=== PATIENT | female | born 1955 | race Caucasian/White ===

== ENCOUNTER 2023-02-27 11:46 | Inpatient (IN) | payer MEDICARE, OTHER ==
[~2023-02-27] VITALS: Ht 167.6 cm; Wt 37.6 kg
--- NOTE | 2023-02-27 11:51 | NUR ---
Pt seen by MD for bedside eval. Safety measures in place. Will continue to monitor.
--- NOTE | 2023-02-27 12:20 | NUR ---
REPORT WAS GIVEN TO RN [facility]. PT WAS TRANSFERED TO [facility] ROOM #[id number].
[2023-02-27] MEDS ORDERED: LORAZEPAM 0.5 MG TABLET PO PRN (13:00)
[2023-02-27] MEDS ORDERED: MAG HYDROX/AL HYDROX/SIMETH 30 ML LIQUID UDC PO PRN (13:00)
[2023-02-27] MEDS ORDERED: MAGNESIUM HYDROXIDE 30 ML LIQUID UDC PO PRN (13:00)
[2023-02-27] MEDS ORDERED: BLOOD SUGAR DIAGNOSTIC 1 EACH STRIP VI ONE (13:00)
[2023-02-27] MEDS ORDERED: ZOLPIDEM 5 MG TABLET PO PRN (13:00)
[2023-02-27] MEDS ORDERED: ACETAMINOPHEN 325 MG TABLET PO PRN (13:00)
--- NOTE | 2023-02-27 13:00 | NUR ---
Nursing -Received report for ER Nurse Billy. Admitted from ER via wheel chair. Alert, oriented x3. Upon face to face with patient noted anxious, hesitancy answering questions being asked during her admission, flat, guarded. denies any plan to hurt self. Refused to provide personal lines insurance agent, claimed there was a friend Naga, but does not know his number.Claimed she's worried about insurancAde, because she does not have address, her house in [place] got sold but will not elaborate . Admit to being somewhat feeling depress but no plan to hurt herself.Geropsychiatric in patient program patient guidelines booklet provided. Oriented to unit settings. Routine admission care done .
[2023-02-27] MEDS ORDERED: LORAZEPAM 1 MG TABLET PO PRN (13:15)
--- NOTE | 2023-02-27 16:01 | NUR ---
[facility] Initial Discharge Note: Per face sheet, pt's residence states [address] [place] [address]. Pt appears homeless at this time and reports she does not have a current residence. Pt stated she does not have any family contact. [facility] will continue to work with pt and MD to ensure a safe and proper discharge plan.
--- NOTE | 2023-02-27 16:04 | NUR ---
Firearms Report: Electrical And Electronic Assembler completed and submitted a [employer] firearms report for 5[address] grave disability certifications. A copy of report has been placed in patient chart.
[2023-02-27 16:06] VITALS: BP 95/42
--- NOTE | 2023-02-27 17:34 | NUR ---
Nursing - Ambulated to the bathroom with fairly steady gait . Noted patient extremely particular with her handwashing . Contienent of her bowel and her bladder, adequate fluid intake, denies any discomfort. Offered shower , patient kept refusing claimed she had a shower this am prior to coming here, reviewed good hygiene, safety emphasized, was oriented to unit settings and routines, verbalized understanding.
[2023-02-27 20:00] VITALS: BP 100/49
--- NOTE | 2023-02-28 05:04 | NUR ---
GPS: Remain calm and cooperative. isolative and quiet.encouraged to ventilate feelings. continent of b+b. assisted with adl's. resting in bed comfortably. continue monitoring for safety.
--- NOTE | 2023-02-28 06:33 | NUR ---
slept 8.15 hrs through the night.
[2023-02-28 07:25] LABS: MEAN CORPUSCULAR HEMOGLOBIN 28.9 uug (24.7-32.8); MEAN CORPUSCULAR VOLUME 84.7 fL (75.5-95.3); PLATELET COUNT (AUTO) 165 K/uL (179-408)
[2023-02-28 07:35] LABS: CREATININE 0.6 mg/dL (0.6-1.3); POTASSIUM 3.8 mmol/L (3.5-5.1)
[2023-02-28 07:47] VITALS: BP 118/48
[2023-02-28] MEDS: QUETIAPINE FUMARATE 25 MG TABLET PO SCH ×2 (13:16→16:59)
--- NOTE | 2023-02-28 15:38 | NUR ---
patient is alert and oriented x2, flat affect no interaction with other peers, isolative withdrawn .with episode of paranoia about her food. encourage for po intake,encouraged to attend in group activity .will continue for close monitoring.
[2023-02-28 16:29] LABS: BILIRUBIN,DIRECT 0.1 mg/dL (0.0-0.2); BILIRUBIN,TOTAL 0.3 mg/dL (0.2-1.0); TOTAL PROTEIN, SERUM 5.3 g/dL (6.4-8.2)
[2023-02-28 16:35] VITALS: BP 125/75
[2023-02-28 19:57] VITALS: BP 100/46
--- NOTE | 2023-03-01 06:59 | NUR ---
Pt has been isolative, stayed in her room, did not want to shower. Pt was able to sleep without sleeping pill. Pt remains isolative and withdrawn.
[2023-03-01 08:13] VITALS: BP 103/51
[2023-03-01] MEDS: QUETIAPINE FUMARATE 25 MG TABLET PO SCH ×3 (08:42→16:33)
[2023-03-01] MEDS: LORAZEPAM 1 MG TABLET PO PRN (11:06)
[2023-03-01] MEDS: ENSURE ENLIVE (VAN) 240 ML LIQUID PO SCH (16:33)
[2023-03-01 16:37] VITALS: BP 96/48
--- NOTE | 2023-03-01 16:54 | NUR ---
Received patient is alert and oriented x2, flat affect no interaction with other peers, isolative withdrawn .with episode of paranoia about her food. encourage for po intake,refused to attend in group activity .pt is up to Hodan-chair for close monitoring.
[2023-03-01 19:54] VITALS: BP 119/61
--- NOTE | 2023-03-02 04:45 | NUR ---
Pt is A/O x2, Isolative , withdrawn, flat affect no interaction with staff. Pt does not comes out of her room. Encourage pt to have some snacks and fluids but pt refused. Pt does not have a bailable plan of care. Reassurance and emotional support provided. Safety measures in place. Continue to monitor for safety, continue with treatment plan.
[2023-03-02 08:13] VITALS: BP 102/59
[2023-03-02] MEDS: QUETIAPINE FUMARATE 25 MG TABLET PO SCH ×3 (08:18→17:07)
[2023-03-02] MEDS: ENSURE ENLIVE (VAN) 240 ML LIQUID PO SCH ×3 (08:19→17:07)
[2023-03-02 16:05] VITALS: BP 109/51
[2023-03-02 19:47] VITALS: BP 117/56
[2023-03-02] MEDS: MIRTAZAPINE 15 MG TABLET PO SCH (21:34)
--- NOTE | 2023-03-02 21:52 | NUR ---
[facility] in [facility] asking for help stating "I can't breathe." Patient was AOx1, confused, disoriented, and experiencing mild anxiety. Pt was unable to reply to my questions being asked. Instead, pt continued to make nonsensical remarks. VS were WNL with O2 Sat 99% per pulse oximeter reading. Pt continued refuse direction given by me, but eventually self-ambulated back to her room and took a nap. Upon each interaction with her, she displays paranoid behavior and makes flight of ideas statements. Safety measures in place. Will continue to monitor.
[2023-03-03 08:00] VITALS: BP 109/59
[2023-03-03] MEDS: ENSURE ENLIVE (VAN) 240 ML LIQUID PO SCH ×3 (08:52→16:36)
[2023-03-03] MEDS: QUETIAPINE FUMARATE 25 MG TABLET PO SCH ×3 (08:52→16:36)
--- NOTE | 2023-03-03 15:29 | NUR ---
Received patient sleeping in her room. Patient is depressed, isolative, suspicious with food, cooperative with nursing care, compliant with medications, forgetful at times, low energy, preoccupied. Patient is A/O X 3 to person, place. Emotional support provided. Fall and safety precautions implemented.
[2023-03-03 15:55] VITALS: BP 105/51
[2023-03-03 19:52] VITALS: BP 106/55
[2023-03-03] MEDS: MIRTAZAPINE 15 MG TABLET PO SCH (20:51)
[2023-03-04 07:04] LABS: HEMATOCRIT 37.6 % (31.2-41.9); MEAN CORPUSCULAR HEMOGLOBIN 28.7 uug (24.7-32.8); MEAN CORPUSCULAR VOLUME 86.2 fL (75.5-95.3); PLATELET COUNT (AUTO) 220 K/uL (179-408)
[2023-03-04 07:14] LABS: CREATININE 0.5 mg/dL (0.6-1.3); MAGNESIUM 1.9 mg/dL (1.8-2.4); PHOSPHOROUS 3.8 mg/dL (2.5-4.9); POTASSIUM 4.2 mmol/L (3.5-5.1)
[2023-03-04 07:40] VITALS: BP 123/51
[2023-03-04] MEDS: QUETIAPINE FUMARATE 25 MG TABLET PO SCH ×3 (09:11→16:18)
[2023-03-04] MEDS: ENSURE ENLIVE (VAN) 240 ML LIQUID PO SCH ×3 (09:12→16:19)
--- NOTE | 2023-03-04 14:57 | NUR ---
Patient is isolative, withdrawn, depressed, disorganized, preoccupied, fixated on cleaning. Patient states "My feet touched the floor, and now I feel dirty. How can I eat after that?" "I need to wash my hands again because I touched the bathroom sink". Patient is A/O X 2 - 3 to person, place. Patient is encourage to verbalize concerns. Fall and safety precautions implemented.
[2023-03-04 15:08] VITALS: BP 117/73
[2023-03-04 19:57] VITALS: BP 104/52
[2023-03-04] MEDS: MIRTAZAPINE 15 MG TABLET PO SCH (21:12)
[2023-03-05] MEDS: QUETIAPINE FUMARATE 25 MG TABLET PO SCH ×3 (08:56→17:42)
[2023-03-05] MEDS: ENSURE ENLIVE (VAN) 240 ML LIQUID PO SCH ×3 (08:57→17:42)
[2023-03-05 09:09] VITALS: BP 124/55
--- NOTE | 2023-03-05 14:13 | NUR ---
Patient had court hearing today, and road test examiner Ayala Medrano gave 14 Day probable for GD only.
[2023-03-05 15:31] VITALS: BP 167/51
--- NOTE | 2023-03-05 19:52 | NUR ---
Patient is isolative, confinding in her room, depressed, thinks everything is dirty, compliant with medications. A/O X 2 to person, place. Patient is encourage to verbalize feelings. Fall and safety precautions implemented.
[2023-03-05 20:37] VITALS: BP 109/47
[2023-03-05] MEDS: MIRTAZAPINE 15 MG TABLET PO SCH (20:53)
--- NOTE | 2023-03-05 23:30 | NUR ---
GPS: Asleep at this time during rounds. Remains isolative,withdrawn,depressed and anxious at times. Re-assured and re-directed prn. Med.compliant. Encouraged to attend groups during the day. Needs attended. Safety emphasized.
[2023-03-06] MEDS: LORAZEPAM 1 MG TABLET PO PRN (01:50)
--- NOTE | 2023-03-06 07:15 | NUR ---
GPS Nursing notes: Patient in her room lying in bed, no S/S of distress noted, mumbling, patient with thought block, able to stated word but not follow with a full sentences, and get irritable, fall and safety precautions implemented, emotional support provided.
[2023-03-06 08:00] VITALS: BP 104/47
[2023-03-06 08:18] LABS: *BILIRUBIN,URIN NEGATIVE (NEGATIVE); *BLOOD, URINE NEGATIVE (NEGATIVE); *CLARITY,URINE CLEAR (CLEAR); *COLOR,URINE YELLOW (YELLOW); *KETONES,URINE NEGATIVE (NEGATIVE); LEUKOCYTE ESTERASE ,URINE NEGATIVE (NEGATIVE); NITRITE, URINE NEGATIVE (NEGATIVE); UGLUCOSE NEGATIVE (NEGATIVE)
[2023-03-06] MEDS: QUETIAPINE FUMARATE 25 MG TABLET PO SCH ×3 (08:47→21:12)
[2023-03-06] MEDS: ENSURE ENLIVE (VAN) 240 ML LIQUID PO SCH ×3 (08:50→17:15)
--- NOTE | 2023-03-06 10:24 | NUR ---
GPS Nursing notes: Patient medication compliance, flat affect, speech is slow but single word, encourage patient to participate with groups but refused, patient taken to the bathroom with guidance, patient had an episode of urinary incontinence. Fall and safety precautions implemented, emotional support provided.
[2023-03-06 15:13] VITALS: BP 120/78
[2023-03-06 20:08] VITALS: BP 104/65
[2023-03-06] MEDS: MIRTAZAPINE 15 MG TABLET PO SCH (21:12)
[2023-03-06] MEDS: REMEDY ESSENTIAL ZINC PASTE 113 GM TOP SCH (21:12)
--- NOTE | 2023-03-07 06:42 | NUR ---
GPS: Pt.slept 4.15 last night. Remains anxious at times,isolative and withdrawn. Poor insight and has impaired judgment. Safety emphasized. Goes to the bathroom for elimination purposes with no reported bowel movement yet.Fluids encouraged and taken fairly. Needs attended. Will continue to monitor.
--- NOTE | 2023-03-07 07:35 | NUR ---
GPS Nursing notes: Patient in her room lying in bed, awake, denies pain or discomforts, no S/S of distress noted. fall and safety precautions implemented. Will continue to monitor.
[2023-03-07 07:44] VITALS: BP 119/57
[2023-03-07] MEDS: QUETIAPINE FUMARATE 25 MG TABLET PO SCH ×3 (08:09→20:07)
[2023-03-07] MEDS: ENSURE ENLIVE (VAN) 240 ML LIQUID PO SCH ×3 (08:33→16:23)
[2023-03-07] MEDS: REMEDY ESSENTIAL ZINC PASTE 113 GM TOP SCH ×2 (08:33→20:06)
[2023-03-07] MEDS ORDERED: BISACODYL 10 MG SUPP.RECT RC PRN (10:15)
--- NOTE | 2023-03-07 13:19 | NUR ---
GPS Nursing notes: Patient is in her room, flat affects denies pain or discomfort, focus on BM, patient soiled herself with stool, patient guided to showered, Patient cooperative with self-care and showered.
[2023-03-07 16:31] VITALS: BP 112/61
[2023-03-07 20:00] VITALS: BP 108/61
[2023-03-07] MEDS: MIRTAZAPINE 15 MG TABLET PO SCH (20:07)
[2023-03-08 08:15] VITALS: BP 111/55
[2023-03-08] MEDS: QUETIAPINE FUMARATE 25 MG TABLET PO SCH ×3 (08:36→21:41)
[2023-03-08] MEDS: ENSURE ENLIVE (VAN) 240 ML LIQUID PO SCH ×3 (08:37→17:17)
[2023-03-08] MEDS: REMEDY ESSENTIAL ZINC PASTE 113 GM TOP SCH ×2 (08:38→21:39)
--- NOTE | 2023-03-08 16:12 | NUR ---
Received patient is isolative withdrawn in her room, depressed, thinks everything is dirty, compliant with medications. A/O X 2 to person, place. refused to attend in group activity Patient is encourage to verbalize feelings. Fall and safety precautions implemented.
[2023-03-08 16:21] VITALS: BP 99/48
[2023-03-08 19:53] VITALS: BP 101/51
[2023-03-08] MEDS: MIRTAZAPINE 15 MG TABLET PO SCH (21:41)
[2023-03-09 07:55] VITALS: BP 111/52
[2023-03-09] MEDS: QUETIAPINE FUMARATE 25 MG TABLET PO SCH ×3 (08:40→20:55)
[2023-03-09] MEDS: ENSURE ENLIVE (VAN) 240 ML LIQUID PO SCH ×3 (09:06→17:15)
[2023-03-09] MEDS: REMEDY ESSENTIAL ZINC PASTE 113 GM TOP SCH ×2 (09:06→20:56)
[2023-03-09 16:31] VITALS: BP 122/44
--- NOTE | 2023-03-09 17:40 | NUR ---
Patient is isolative withdrawn in her room, depressed, constantly saying i can't no breath O2 sat checked in room air was 99-100% , compliant with medications. A/O X 2 to person, place. refused to attend in group activity Patient is encourage to verbalize feelings. Fall and safety precautions implemented.
[2023-03-09 19:47] VITALS: BP 108/65
[2023-03-09] MEDS: MIRTAZAPINE 15 MG TABLET PO SCH (20:56)
--- NOTE | 2023-03-10 07:10 | NUR ---
GPS Nursing notes: Patient is lying in bed asleep this morning, with no S/S of distress noted.Will continue to monitor.
[2023-03-10 08:00] VITALS: BP 132/62
[2023-03-10] MEDS: PAROXETINE HCL 10 MG TABLET PO SCH (09:12)
[2023-03-10] MEDS: REMEDY ESSENTIAL ZINC PASTE 113 GM TOP SCH ×2 (09:13→21:11)
[2023-03-10] MEDS: ENSURE ENLIVE (VAN) 240 ML LIQUID PO SCH ×3 (09:14→17:00)
[2023-03-10 16:00] VITALS: BP 131/48
[2023-03-10 20:07] VITALS: BP 129/59
[2023-03-10] MEDS: MIRTAZAPINE 15 MG TABLET PO SCH (21:10)
[2023-03-10] MEDS: OLANZAPINE 2.5 MG TABLET PO SCH (21:10)
[2023-03-11 08:00] VITALS: BP 121/73
[2023-03-11] MEDS: PAROXETINE HCL 10 MG TABLET PO SCH (09:00)
[2023-03-11] MEDS: ENSURE ENLIVE (VAN) 240 ML LIQUID PO SCH ×3 (09:01→17:03)
[2023-03-11] MEDS: REMEDY ESSENTIAL ZINC PASTE 113 GM TOP SCH ×2 (09:01→20:50)
--- NOTE | 2023-03-11 15:03 | NUR ---
Received patient awake in her room. Patient is A/O X 3 to person, place. Patient is fixated on washing her hands constantly. Patient states "I can't do anything, everything is so dirty". Patient is isolative, withdrawn, quiet, anxious and preoccupied at times. Patient is encourage to vent feelings and emotions. Fall and safety precautions implemented.
[2023-03-11 16:00] VITALS: BP 124/56
--- NOTE | 2023-03-11 19:56 | NUR ---
Patient in bed, awake, verbally responsive during initial rounds. In no acute respiratory distress. Denies any pain/discomforts at this time. Safety measures and fall prevention continuos. VS stable.
[2023-03-11 20:00] VITALS: BP 121/58
[2023-03-11] MEDS: MIRTAZAPINE 15 MG TABLET PO SCH (20:49)
[2023-03-11] MEDS: OLANZAPINE 2.5 MG TABLET PO SCH (20:49)
[2023-03-12 07:48] VITALS: BP 118/53
[2023-03-12] MEDS: PAROXETINE HCL 10 MG TABLET PO SCH (08:52)
[2023-03-12] MEDS: ENSURE ENLIVE (VAN) 240 ML LIQUID PO SCH ×3 (08:53→17:00)
[2023-03-12] MEDS: REMEDY ESSENTIAL ZINC PASTE 113 GM TOP SCH ×2 (08:53→21:00)
--- NOTE | 2023-03-12 14:52 | NUR ---
Patient is paranoid about washing her hands all the time, confinding in her room, suspicious with food being dirty, making loose associations, confused, disorganized. Patient is A/O X 2 to person. Reality orientation provided. Fall and safety precautions implemented.
[2023-03-12 16:18] VITALS: BP 137/47
[2023-03-12] MEDS ORDERED: DIPHENOXYLATE HCL/ATROP SULF TABLET PO PRN (17:45)
[2023-03-12] MEDS: CULTURELLE CAPSULE PO SCH (18:10)
--- NOTE | 2023-03-12 18:18 | NUR ---
Patient is having loose stools, Supervisor Soldering was informed and prescribed Lonox 1 tablet q6hr PRN, and Culturelle 1 capsule daily, first dose of medications given at 18:10.
[2023-03-12 20:47] VITALS: BP 111/44
[2023-03-12] MEDS: MIRTAZAPINE 15 MG TABLET PO SCH (20:59)
[2023-03-12] MEDS: OLANZAPINE 5 MG TABLET PO SCH (21:00)
--- NOTE | 2023-03-13 04:44 | NUR ---
Pt is paranoid with germs. When taking her medications pt stated " this is bad"," germs all over"," its dirty ", "i ca not do this", . Pt is isolative withdrawn and does not comes out of her room. Pt is suspicious with food being dirty and her dinner was untouched. Offered pt a snack and pt refused. Pt is compliant with medications. Reassurance and emotional support provided .Fall and safety precautions implemented. Continue to monitor for safety.
[2023-03-13 08:17] VITALS: BP 114/51
[2023-03-13] MEDS: PAROXETINE HCL 10 MG TABLET PO SCH (08:43)
[2023-03-13] MEDS: ENSURE ENLIVE (VAN) 240 ML LIQUID PO SCH ×3 (08:44→17:00)
[2023-03-13] MEDS: CULTURELLE CAPSULE PO SCH (08:44)
[2023-03-13] MEDS: REMEDY ESSENTIAL ZINC PASTE 113 GM TOP SCH ×2 (08:45→20:43)
--- NOTE | 2023-03-13 14:22 | NUR ---
Patient is depressed, lethargic, paranoid about hygiene, confinding in her room, withdrawn, confused, forgetful, disoriented. Patient states "Everything is too dirty. I can't do this anymore!" Patient keeps touching her buttocks and smelling her fingers. Patient states "I'm impacted and disgusting". Patient had one episode of loose stools this morning, not constipated. Active listening provided. Fall and safety precautions implemented.
--- NOTE | 2023-03-13 15:43 | NUR ---
[facility] SNF Referral: SW faxed patient's referral packet including: History and Physical, Consultation, Progress Notes, Medication List and Labs to the following facilities for review and possible alf placement: [facility] [address] [id number] ([phone]) and spoke with Kristy at the facility. Pt is accepted upon discharge.
[2023-03-13 17:19] VITALS: BP 110/48
[2023-03-13] MEDS: OLANZAPINE 5 MG TABLET PO SCH (20:42)
[2023-03-13] MEDS: MIRTAZAPINE 15 MG TABLET PO SCH (20:42)
[2023-03-13 21:53] VITALS: BP 123/50
--- NOTE | 2023-03-14 04:04 | NUR ---
Pt is still isolative, paranoid, Paranoid. Pt stays in room but pt did allow staff to give pt a shower. Pt is compliant with medications and with nursing care. Pt is unable to provide care to self and needs maximal assistance with ADLs. Reassurance and emotional support provided. Safety measures in place, continue to monitor for safety.
[2023-03-14 08:29] VITALS: BP 109/62
--- NOTE | 2023-03-14 08:30 | NUR ---
Withdrawn, quiet, compliant with taking of medications and care.
[2023-03-14] MEDS: CULTURELLE CAPSULE PO SCH (08:37)
[2023-03-14] MEDS: REMEDY ESSENTIAL ZINC PASTE 113 GM TOP SCH ×2 (08:38→21:56)
[2023-03-14] MEDS: PAROXETINE HCL 10 MG TABLET PO SCH (08:38)
[2023-03-14] MEDS: ENSURE ENLIVE (VAN) 240 ML LIQUID PO SCH ×3 (08:38→16:32)
--- NOTE | 2023-03-14 13:00 | NUR ---
Withdrawn, quiet, eating well.
--- NOTE | 2023-03-14 16:00 | NUR ---
Responds to interaction and questions. Anxious and angry why she is here
[2023-03-14 16:31] VITALS: BP 124/61
[2023-03-14 20:23] VITALS: BP 104/45
[2023-03-14] MEDS: MIRTAZAPINE 15 MG TABLET PO SCH (21:56)
[2023-03-14] MEDS: OLANZAPINE 5 MG TABLET PO SCH (21:56)
[2023-03-15 08:46] VITALS: BP 119/69
[2023-03-15] MEDS: ENSURE ENLIVE (VAN) 240 ML LIQUID PO SCH ×3 (09:00→17:00)
[2023-03-15] MEDS: CULTURELLE CAPSULE PO SCH (09:26)
[2023-03-15] MEDS: PAROXETINE HCL 10 MG TABLET PO SCH (09:26)
[2023-03-15] MEDS: REMEDY ESSENTIAL ZINC PASTE 113 GM TOP SCH ×2 (09:27→20:05)
--- NOTE | 2023-03-15 15:17 | NUR ---
Pt is eating more but she still has poor intake not meeting nutritional intake of > 75%. Pt is isolative an does not come out of her room Pt does not interacts with staff or peers. encourage pt to ventilate feeling and to attend group activities but pt turns her face away and ignores staff. Reassurance and emotional support provided. Safety measures still in place. Continue to monitor for safety, continue with treatment plan.
[2023-03-15 16:12] VITALS: BP 113/54
[2023-03-15] MEDS: OLANZAPINE 5 MG TABLET PO SCH (19:55)
[2023-03-15] MEDS: MIRTAZAPINE 15 MG TABLET PO SCH (19:57)
--- NOTE | 2023-03-16 07:20 | NUR ---
GPS Nursing notes: Patient is awake in bed stated, "I dont know, what is going on". Patient denies pain or discomforts, no S/S of distress, fall and safety precautions implement, emotional support provided at this time, re-orientated patient to environment and unit protocol. will continue to monitor.
[2023-03-16 07:42] LABS: HEMATOCRIT 33.1 % (31.2-41.9); MEAN CORPUSCULAR HEMOGLOBIN 29.4 uug (24.7-32.8); MEAN CORPUSCULAR VOLUME 87.3 fL (75.5-95.3); PLATELET COUNT (AUTO) 279 K/uL (179-408)
[2023-03-16 07:48] LABS: CREATININE 0.5 mg/dL (0.6-1.3); POTASSIUM 4.3 mmol/L (3.5-5.1)
[2023-03-16 08:10] VITALS: BP 126/61
[2023-03-16] MEDS: PAROXETINE HCL 10 MG TABLET PO SCH (08:54)
[2023-03-16] MEDS: ENSURE ENLIVE (VAN) 240 ML LIQUID PO SCH ×3 (08:55→16:29)
[2023-03-16] MEDS: CULTURELLE CAPSULE PO SCH (08:55)
[2023-03-16] MEDS: REMEDY ESSENTIAL ZINC PASTE 113 GM TOP SCH ×2 (08:55→21:14)
[2023-03-16 16:47] VITALS: BP 111/50
[2023-03-16 19:50] VITALS: BP 109/57
[2023-03-16] MEDS: MIRTAZAPINE 15 MG TABLET PO SCH (20:51)
[2023-03-16] MEDS ORDERED: OLANZAPINE 5 MG TABLET PO SCH (21:00)
--- NOTE | 2023-03-17 05:11 | NUR ---
GPS NOTES: Patient received in bed, A&0x2, no distress noted. Patient is withdrawn, isolative in her room. Patient only engage in simple conversation when asked. She is med compliant. Patient denies VH/AH/SI. Patient able to make needs known. Incontinent care provided with minimal resistance. Needs met and attended. Safety measures in placed.
[2023-03-17] MEDS: CULTURELLE CAPSULE PO SCH (08:21)
[2023-03-17] MEDS: PAROXETINE HCL 10 MG TABLET PO SCH (08:21)
[2023-03-17] MEDS: ENSURE ENLIVE (VAN) 240 ML LIQUID PO SCH (08:21)
[2023-03-17] MEDS: REMEDY ESSENTIAL ZINC PASTE 113 GM TOP SCH (08:22)
[2023-03-17 08:38] VITALS: BP 100/42
--- NOTE | 2023-03-17 09:19 | NUR ---
[facility] Discharge Note: Pt will be discharged to [facility] [address] [place] [address] ([phone]) via Ambulance transportation at 11AM. [facility] spoke with admin coordinator, Kristy and KACY at the facility who states they are ready to accept the patient today. Pt is aware and agreeable with discharge plan. Pt is alert and oriented x4, is unable to plan for self-care at this time. However, pt is willing to accept care at SNF. Pt does not have any family contact at this time. Pt denies any suicidal or homicidal ideation. Pt will follow-up at the facility with Psychiatrist, Dr. Valderrama and Real Estate Executive Assistant, Dr. Bragg. Pt presents with calm mood and congruent affect. PHARMACY: [facility] ([phone]) [address] [place] [address].
--- NOTE | 2023-03-17 11:45 | NUR ---
GPS Discharge notes: Patient discharge to [facility], A/O x4, ambulatory with steady gait,no S/S of discomfort, pain or SOB. Discharged education provided, all belongings and valuables given to patient. Patient transported via Ambulance.
== END 2023-03-17 11:45 | DRG 885 ==
LOC: ER 11:46 → GPS 12:18
PROVIDERS: ADMIT Psychiatry & Neurology Psychiatry; ATTEND Nurse Practitioner Family
DX: F29 Unspecified psychosis not due to a substance or known physiological condition (principal); F03.93 Unspecified dementia, unspecified severity, with mood disturbance; F03.94 Unspecified dementia, unspecified severity, with anxiety; G47.00 Insomnia, unspecified; M85.80 Other specified disorders of bone density and structure, unspecified site; K59.00 Constipation, unspecified; Z59.02 Unsheltered homelessness; Z96.619 Presence of unspecified artificial shoulder joint; R63.6 Underweight
CPT/HCPCS: 36415; 71045; 83735; 84100; 85025; 87806; 93005; A4663

== ENCOUNTER 2024-10-19 15:44 | Inpatient (IN) | payer MEDICARE, OTHER ==
[~2024-10-19] VITALS: Ht 157.5 cm; Wt 79.6 kg
[2024-10-19 16:38] LABS: BASOPHILS % (AUTO) 0.3 % (0.0-2.0); EOSINOPHILS % (AUTO) 0.4 % (0.0-7.0); HEMATOCRIT 30.7 % (31.2-41.9); LYMPHOCYTES # (AUTO) 0.8 K/uL (0.8-4.8); LYMPHOCYTES % (AUTO) 19.5 % (20.5-51.5); MEAN CORPUSCULAR HEMOGLOBIN 25.6 uug (24.7-32.8); MEAN CORPUSCULAR HGB CONC 33 g/dL (32.3-35.6); MEAN CORPUSCULAR VOLUME 78.8 fL (75.5-95.3); MONOCYTES # (AUTO) 0.5 K/uL (0.1-1.30); MONOCYTES % (AUTO) 12.5 % (0.0-11.0); NEUTROPHILS # (AUTO) 2.6 K/uL (1.8-8.9); NEUTROPHILS % (AUTO) 67.3 % (38.5-71.5); PLATELET COUNT (AUTO) 358 K/uL (179-408); RED BLOOD CELL COUNT(AUTO) 3.89 MIL/uL (3.63-4.92); RED CELL DISTRIBUTION WIDTH 16.5 % (12.3-17.7); WHITE BLOOD COUNT (AUTO) 3.9 K/uL (3.8-11.8)
[2024-10-19 17:02] LABS: ETHANOL < 3 MG/DL (0-10)
[2024-10-19 17:02] LABS: IRON, SERUM 184 ug/dL (50-175)
[2024-10-19 17:03] LABS: DIFFERENTIAL COMMENT 1
[2024-10-19 17:07] LABS: NT-PRO BNP 33 pg/mL (0-125)
[2024-10-19 17:18] LABS: ACETAMINOPHEN < 2.0 ug/mL (10-30); ALANINE AMINOTRANSFERASE 48 U/L (14-59); ALBUMIN 3.6 g/dL (3.4-5.0); ALKALINE PHOSPHATASE 138 U/L (50-136); ASPARTATE AMINOTRANSFERASE 32 U/L (15-37); BILIRUBIN,DIRECT 0.1 mg/dL (0.0-0.2); BILIRUBIN,TOTAL 0.2 mg/dL (0.2-1.0); CALCIUM 8.6 mg/dL (8.5-10.1); CARBON DIOXIDE 30 mmol/L (21-32); CHLORIDE 104 mmol/L (98-107); CREATININE 0.8 mg/dL (0.6-1.3); GLUCOSE 108 mg/dL (74-106); POTASSIUM 3.6 mmol/L (3.5-5.1); SODIUM SERUM 145 mmol/L (136-145); TOTAL PROTEIN, SERUM 7.7 g/dL (6.4-8.2); UREA NITROGEN, BLOOD 22 mg/dL (7-18)
[2024-10-19] MEDS ORDERED: BISA10SU95 RC (17:29)
[2024-10-19] MEDS ORDERED: ACET-3117 PO (17:29)
[2024-10-19] MEDS ORDERED: LACT1CAP25 PO (17:29)
[2024-10-19] MEDS ORDERED: BENZ1TAB7 PO (17:29)
[2024-10-19] MEDS ORDERED: NA P133E RC (17:30)
[2024-10-19] MEDS ORDERED: DIPH1TAB PO (17:30)
[2024-10-19] MEDS ORDERED: FERR325T28 PO (17:30)
[2024-10-19] MEDS ORDERED: MULT-594 PO (17:30)
[2024-10-19] MEDS ORDERED: MAG-55 PO (17:30)
[2024-10-19] MEDS ORDERED: OLAN7.5T3 PO (17:30)
[2024-10-19] MEDS ORDERED: FURO-151 PO (17:30)
[2024-10-19] MEDS ORDERED: MAGN400O6 PO (17:30)
[2024-10-19] MEDS ORDERED: CHOL100034 PO (17:30)
[2024-10-19 19:36] LABS: *BILIRUBIN,URIN NEGATIVE (NEGATIVE); *BLOOD, URINE NEGATIVE (NEGATIVE); *CLARITY,URINE CLEAR (CLEAR); *COLOR,URINE YELLOW (YELLOW); *KETONES,URINE 1+ (NEGATIVE); *PROTEIN,URINE NEGATIVE (NEGATIVE); *UROBILINOGEN,URINE 0.2 E.U./dl (NORMAL); LEUKOCYTE ESTERASE ,URINE NEGATIVE (NEGATIVE); NITRITE, URINE NEGATIVE (NEGATIVE); UGLUCOSE NEGATIVE (NEGATIVE)
[2024-10-19 19:58] LABS: *AMPHETAMINE, URINE NEGATIVE (NEGATIVE); *BARBITURATE, URINE NEGATIVE (NEGATIVE); *BENZODIAZEPINE, URINE NEGATIVE (NEGATIVE); *CANNABINOID, URINE NEGATIVE (NEGATIVE); *COCCAINE, URINE NEGATIVE (NEGATIVE); *OPIATE, URINE NEGATIVE (NEGATIVE); *PHENCYCLIDINE SCREEN,URINE NEGATIVE (NEGATIVE); FENTANYL, URINE NEGATIVE (NEGATIVE)
[2024-10-19] MEDS ORDERED: FLEET ENEMA 133 ML BOTTLE RC PRN (20:15)
[2024-10-19] MEDS ORDERED: BISACODYL 10 MG SUPP.RECT RC PRN (20:15)
[2024-10-19] MEDS ORDERED: ONDANSETRON 4 MG/2 ML VIAL IV PRN (20:15)
[2024-10-19] MEDS ORDERED: MAGNESIUM HYDROXIDE 30 ML LIQUID UDC PO PRN ×2 (20:15)
[2024-10-19] MEDS ORDERED: REMEDY ESSENTIAL ZINC PASTE 113 GM TP PRN (20:15)
[2024-10-19] MEDS ORDERED: OLANZAPINE 5 MG TABLET ONE (21:23)
[2024-10-19] MEDS: OLANZAPINE 5 MG TABLET PO SCH (21:39)
[2024-10-19] MEDS: IV NS 1000 ML 1,000 ML IV SCH (21:39)
[2024-10-19 21:50] VITALS: BP 142/63; TEMP 98.3; O2SAT 99
[2024-10-20 06:00] VITALS: BP 126/56; TEMP 98.5; O2SAT 95
[2024-10-20 06:41] LABS: BASOPHILS % (AUTO) 0.2 % (0.0-2.0); EOSINOPHILS % (AUTO) 0.6 % (0.0-7.0); HEMATOCRIT 26.9 % (31.2-41.9); LYMPHOCYTES # (AUTO) 1.1 K/uL (0.8-4.8); LYMPHOCYTES % (AUTO) 27.2 % (20.5-51.5); MEAN CORPUSCULAR HEMOGLOBIN 26.3 uug (24.7-32.8); MEAN CORPUSCULAR HGB CONC 34 g/dL (32.3-35.6); MEAN CORPUSCULAR VOLUME 78.4 fL (75.5-95.3); MONOCYTES # (AUTO) 0.7 K/uL (0.1-1.30); MONOCYTES % (AUTO) 16.7 % (0.0-11.0); NEUTROPHILS # (AUTO) 2.2 K/uL (1.8-8.9); NEUTROPHILS % (AUTO) 55.3 % (38.5-71.5); PLATELET COUNT (AUTO) 300 K/uL (179-408); RED BLOOD CELL COUNT(AUTO) 3.43 MIL/uL (3.63-4.92); RED CELL DISTRIBUTION WIDTH 16.4 % (12.3-17.7); WHITE BLOOD COUNT (AUTO) 3.9 K/uL (3.8-11.8)
[2024-10-20 06:52] LABS: CALCIUM 8.1 mg/dL (8.5-10.1); CREATININE 0.7 mg/dL (0.6-1.3); MAGNESIUM 1.7 mg/dL (1.8-2.4); PHOSPHOROUS 3.4 mg/dL (2.5-4.9); POTASSIUM 3.3 mmol/L (3.5-5.1)
[2024-10-20 07:31] LABS: DIFFERENTIAL COMMENT 1
[2024-10-20] MEDS: IV NS 1000 ML 1,000 ML IV PRN (08:31)
[2024-10-20] MEDS: BENZTROPINE MESYLATE 1 MG TABLET PO SCH (08:32)
[2024-10-20] MEDS: MAGNESIUM OXIDE 400 MG TABLET PO ONE (08:59)
[2024-10-20] MEDS: POTASSIUM CHLORIDE 20 MEQ POWDER PACKET PO ONE (08:59)
[2024-10-20 10:02] LABS: EOSINOPHILS % (MANUAL) 1 % (0-8); LYMPHOCYTES % (MANUAL) 27 % (20-40); MONOCYTES % (MANUAL) 17 % (2-10); NEUTROPHILS % (MANUAL) 55 % (42-75); PLATELET ESTIMATE ADEQUATE
[2024-10-20 16:00] VITALS: BP 117/58; TEMP 99.7; O2SAT 90
[2024-10-20 19:00] VITALS: BP 112/51; TEMP 98.9; O2SAT 96
[2024-10-21] MEDS: ACETAMINOPHEN 325 MG TABLET PO PRN (02:47)
[2024-10-21 06:00] VITALS: BP 114/46; TEMP 98.2; O2SAT 93
[2024-10-21 06:41] LABS: BASOPHILS % (AUTO) 1.2 % (0.0-2.0); EOSINOPHILS % (AUTO) 0.7 % (0.0-7.0); HEMATOCRIT 26.2 % (31.2-41.9); HEMOGLOBIN 8.5 g/dL (10.9-14.3); LYMPHOCYTES # (AUTO) 1.3 K/uL (0.8-4.8); LYMPHOCYTES % (AUTO) 44.5 % (20.5-51.5); MEAN CORPUSCULAR HEMOGLOBIN 26.3 uug (24.7-32.8); MEAN CORPUSCULAR HGB CONC 32 g/dL (32.3-35.6); MEAN CORPUSCULAR VOLUME 81.5 fL (75.5-95.3); MONOCYTES # (AUTO) 0.6 K/uL (0.1-1.30); MONOCYTES % (AUTO) 20.9 % (0.0-11.0); NEUTROPHILS % (AUTO) 32.7 % (38.5-71.5); PLATELET COUNT (AUTO) 176 K/uL (179-408); RED BLOOD CELL COUNT(AUTO) 3.22 MIL/uL (3.63-4.92); RED CELL DISTRIBUTION WIDTH 16.6 % (12.3-17.7)
[2024-10-21 06:49] LABS: CALCIUM 8.1 mg/dL (8.5-10.1); CREATININE 0.7 mg/dL (0.6-1.3); POTASSIUM 3.7 mmol/L (3.5-5.1)
[2024-10-21 07:13] LABS: DIFFERENTIAL COMMENT 1
[2024-10-21 11:30] VITALS: BP 115/58; TEMP 98.3; O2SAT 95
[2024-10-21 14:54] LABS: LYMPHOCYTES % (MANUAL) 0 % (20-40); NEUTROPHILS % (MANUAL) 0 % (42-75)
[2024-10-21 18:46] VITALS: BP 147/60; TEMP 97.7; O2SAT 96
[2024-10-21 19:00] VITALS: BP 122/63; TEMP 100.2; O2SAT 94
[2024-10-22 06:07] VITALS: BP 128/53; TEMP 98; O2SAT 95
[2024-10-22 08:28] VITALS: BP 137/59; TEMP 98.7; O2SAT 98
[2024-10-22 14:45] VITALS: BP 135/65; TEMP 98.5; O2SAT 97
== END 2024-10-22 15:00 | DRG 640 ==
LOC: ER 15:44 → MEDSURG3 18:30 → MEDSURG1 10-22 06:46
PROVIDERS: ADMIT Internal Medicine; ATTEND Internal Medicine
DX: E86.0 Dehydration (principal); G93.41 Metabolic encephalopathy; D50.9 Iron deficiency anemia, unspecified; E87.0 Hyperosmolality and hypernatremia; E83.42 Hypomagnesemia; E87.6 Hypokalemia; I50.9 Heart failure, unspecified; M85.89 Other specified disorders of bone density and structure, multiple sites; Z79.899 Other long term (current) drug therapy; R41.9 Unspecified symptoms and signs involving cognitive functions and awareness; R79.89 Other specified abnormal findings of blood chemistry; F32.9 Major depressive disorder, single episode, unspecified
CPT/HCPCS: 36415; 70030-TC; 70450; 71045; 76700; 83550; 83735; 84100; 85025; A4663; G0378; G0480; J7040